=== PATIENT | male | born 1975 | race African-American/Black ===

== ENCOUNTER → 2017-02-03 | Outpatient (CLI) | payer OTHER ==
--- NOTE | 2017-02-03 12:38 | RADRPT ---
PROCEDURE: Left knee x-ray CLINICAL INDICATION: PAIN TECHNIQUE: AP, lateral , sunrise and oblique views of the left knee were obtained. 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 No evidence of acute fractures, dislocatio ns or patellar subluxation. The bony mineralization is normal without focal bony blastic or lytic l esions. No evidence of a left knee joint effusion. IMPRESSION: Mild degenerate joint disease left knee without acute fracture dislocation or joint effusion. RPTAT:AAJJ Physician Erica Date Time Electronically viewed and signed by Salinas Gomez Physician on 02/03/2017 12:38 BM/
== END | disposition home or self-care (01) ==
LOC: HKI 09:32
PROVIDERS: ATTEND Orthopaedic Surgery
DX: M25.562 Pain in left knee (principal)
CPT/HCPCS: 73564; Z7500; G0463